=== PATIENT | male | born 1950 | race Caucasian/White ===

== ENCOUNTER 2019-09-20 08:57 | Day surgery (SDC) | payer MEDICARE, BC ==
[~2019-09-20] VITALS: Ht 177.8 cm; Wt 125.5 kg
[2019-09-20] VITALS (10 sets, daily range): BP systolic 99–139; BP diastolic 64–90; PULSE 61–118; TEMP 97.8–98.3
[2019-09-20] MEDS ORDERED: CYMBALTA 60MG60 MG PO (09:28)
[2019-09-20] MEDS ORDERED: TOPROL XL 25MG25 MG PO (09:28)
[2019-09-20] MEDS ORDERED: ZESTORETIC 12.51 TA1 PO (09:28)
[2019-09-20] MEDS ORDERED: PRILOSEC 20MG20 MG PO (09:28)
[2019-09-20] MEDS ORDERED: XARELTO20 MG PO (09:29)
[2019-09-20] MEDS ORDERED: FLOMAX 0.40.4 MG/CAP PO (09:29)
[2019-09-20] MEDS ORDERED: TYLENOL 325MG325 MG PO (09:30)
[2019-09-20] MEDS ORDERED: PRESERVISION1 SGL PO (09:30)
[2019-09-20] MEDS ORDERED: CALCIUM 600MG+D1 TAB PO (09:30)
[2019-09-20 12:28] LABS: HEMATOCRIT 38.4 % (42.0-52.0); HEMOGLOBIN 12.4 g/dl (13.5-18.0)
--- NOTE | 2019-09-20 14:35 | NUR ---
PATIENT ADMITED INTO ROOM 324 POST OP LEFT ORIF OF HUMERUS. LUE DRESSING IS CD&I WITH AQUACEL AND SLING. PATIENT MOVING LUE FINGERS. NO C/O PAIN. RIGHT WRIST IV TO INT. RIGHT HAND IV INFUSING. NO C/O N/V. LIQUIDS AT BEDSIDE. HEAD TO TOE ASSESSMENT COMPLETE. CALL LIGHT IN REACH.
--- NOTE | 2019-09-20 15:15 | NUR ---
REPORTED OFF TO BA CURRY.
--- NOTE | 2019-09-20 19:03 | NUR ---
Patient has done well this afternoon. Left arm numb since surgery, arm remains in sling. Post op vss. Tolerating diet well. Denies further needs at this time. Reported off to scene shifter.
--- NOTE | 2019-09-20 20:15 | NUR ---
PATIENT UP IN CHAIR AT BEDSIDE. IS ALERT AND ORIENTED X4. HAS SL X2 TO RIGHT HAND. LEFT ARM IN SLING, AQUACELL DRSG INTACT TO LEFT UPPER ARM. DENIES PAIN, ABLE TO MOVE FINGERS TO LEFT HAND WITHOUT PROBLEM. IV ANTIBIOTIC INFUSING AT THIS TIME TO RIGHT HAND IV SITE WITHOUT REDNESS OR SWELLING.
--- NOTE | 2019-09-20 20:35 | NUR ---
DC'D SECOND IV SITE TO RIGHT HAND PER PT REQUEST.
--- NOTE | 2019-09-21 00:30 | NUR ---
PT IN BED, RESPIRATIONS EVEN AND UNLABORED. HAS ICE PACK TO LEFT ARM.
[2019-09-21 03:45] VITALS: BP 121/63; PULSE 86; TEMP 97.8
--- NOTE | 2019-09-21 05:30 | NUR ---
PT UP TO BATHROOM, VOIDS AND BACK TO BED. DENIES PAIN, STILL HAS MILD NUMBNESS TO LEFT ARM. ICE PACK REPLACED AT THIS TIME.
[2019-09-21] MEDS ORDERED: NORCO 325 MG-7.1 TAB PO (06:32)
[2019-09-21] MEDS ORDERED: ROXICODONE 55 MG/TAB PO (06:33)
[2019-09-21 07:42] VITALS: BP 145/78; PULSE 103; TEMP 98
[2019-09-21 07:47] LABS: HEMOGLOBIN 11.8 g/dl (13.5-18.0)
--- NOTE | 2019-09-21 07:55 | NUR ---
Sitting up in bed with eyes open. Alert and oriented x3. Denies pain at this time. Able to move left arm and hand, explains that it is still numb that he is not having pain. Aquacell dressing to left upper arm CDI. Erythema and mild edema noted to left upper arm, per the patient it was that way before the procedure. Denies needs at this time.
--- NOTE | 2019-09-21 09:41 | NUR ---
SW met with the patient to discuss discharge plan. The patient lives alone in [place]. He states that his , Paloma ([id number]#[phone]), is retired and lives in [place]. He reports independence with ADLs and has a cane. The patient's PCP is Dr. Ko James and he receives his medications at [facility] in [place]. He reports no difficulties obtaining his meds. The patient does not have advanced directives in EMR, but he states that he does have them completed and that his (Paloma) is his DPOA-HC. The patient plans to return home upon discharge. No additional needs at this time.
--- NOTE | 2019-09-21 10:34 | NUR ---
Discharge instructions reviewed with the patient. Questions answered. Patient verbalizes understanding to all and signs paperwork. Provided discharge packet to the patient. Patient plans to stay until afternoon antibiotic and his brother will be coming to pick him up. Patient denies needs at this time.
--- NOTE | 2019-09-21 13:33 | NUR ---
This student nurse wheeled patient to exit with discharge orders.
== END 2019-09-21 13:45 | disposition home or self-care (01) ==
LOC: SDCO 08:57 → SURG 13:36 → SDCO 09-21 13:43 → SURG 09-21 13:43 → SDCO 09-21 13:45 → SURG 09-21 13:45
PROVIDERS: Orthopaedic Surgery
DX: S42.302A Unspecified fracture of shaft of humerus, left arm, initial encounter for closed fracture (principal); W19.XXXA Unspecified fall, initial encounter; I48.91 Unspecified atrial fibrillation; E86.1 Hypovolemia; Z79.899 Other long term (current) drug therapy; G47.33 Obstructive sleep apnea (adult) (pediatric); I10 Essential (primary) hypertension; E66.01 Morbid (severe) obesity due to excess calories; Z68.45 Body mass index [BMI] 70 or greater, adult; M17.11 Unilateral primary osteoarthritis, right knee; K21.9 Gastro-esophageal reflux disease without esophagitis
CPT/HCPCS: A9284; C1713; C1776; J0330; J0690; J2250; J2370; J2405; J2704; J2795; J3010; J7042; J7120

== ENCOUNTER 2019-10-01 07:32 | Day surgery (SDC) | payer MEDICARE, BC ==
[~2019-10-01] VITALS: Ht 177.8 cm; Wt 124.5 kg
[2019-10-01] VITALS (10 sets, daily range): BP systolic 127–153; BP diastolic 71–90; PULSE 95–116; TEMP 97.3–98
[~2019-10-01 07:32] MED LIST: CALCIUM 600MG+D1 TAB PO; CYMBALTA 20MG20 MG PO; FLOMAX 0.40.4 MG/CAP PO; LOPRESSOR 225 MG/TAB PO; NORCO 325 MG-7.1 TAB PO; PRESERVISION1 SGL PO; PRILOSEC 20MG20 MG PO; ROXICODONE 55 MG/TAB PO; TYLENOL 325MG325 MG PO; XARELTO20 MG PO; ZESTORETIC 12.51 TA1 PO
--- NOTE | 2019-10-01 13:00 | NUR ---
Patient up from OR. Alert and oriented x 3. Assessment complete. Post op VSS, patient has history of Afib, HR between 90's to 110's. On 2 L of o2 via NC at this time, patient states he does not wear oxygen at home. Post op fluids infusing to right hand per orders. Left upper extremity in sling with luci wrap in place. Patient states he can feel his hand and fingers but is otherwise numb. Bruising noted to right orbital area. Will continue to monitor.
--- NOTE | 2019-10-01 14:29 | NUR ---
Veterinary Surgery Technician met with patient to discuss discharge planning. Patient lives alone in [place] although reports he is to his , Paloma ([id number]#[phone]) who lives in [place]. Patient sees Dr. James for primary care and obtains medications from [facility] in [place] with no difficulties. Patient uses CPAP and no other DME. Patient reports independence with ADLS and plans on returning home upon discharge. Patient states his brother, Quintin will provide him with transportation home. SW to continue to follow as needed.
--- NOTE | 2019-10-01 16:50 | NUR ---
Contacted [facility]ONT[facility], patient states he forgot to tell Dr. Xie that he is allergic to the cotton softroll that is in place. Will cause itching, redness, swelling and last time he had it on caused infection. Patient states he cannot currently feel LUE and is afraid that it will cause allergic reaction. Per ELADIA, take down dressing and place aquacell on incision. Patient is to keep arm in sling, spouse to bring brace.
--- NOTE | 2019-10-01 19:25 | NUR ---
Patient has done well throughout the day. Minimal needs. States his LUE is still numb this afternoon. Tolerating diet without difficulties. Sitting up in recliner this afternoon. Hemovac with bloody drainage present. Denies further needs at this time. Reported off to plant operator/shift supervisor.
--- NOTE | 2019-10-01 19:30 | NUR ---
Report received. 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 Assessment complete. VS stable. A&Ox3. Sitting up in chair. Aquacell dressing to left shoulder-CDI. Reminded to keep left extremity in sling-states he has been noticing it slip out because he has no feeling in it due to the block. Encouraged to support on pillows. Fresh ice pack applied. Denies nausea/shortness of breath/pain. Plan of care discussed for this shift to include pain conrol/HS meds/Sling/Ice. Verbalizes understanding. Encouraged to call for assistance to bed. Call light in reach. Will monitor.
[2019-10-02 01:21] VITALS: BP 138/73; PULSE 94; TEMP 97.5
[2019-10-02 04:12] VITALS: BP 104/62; PULSE 77; TEMP 98
--- NOTE | 2019-10-02 04:30 | NUR ---
Remained pain free this shift stating "wish this block lasted 12 days." Has had issues keeping left upper extremity in sling. Re-adjusted several times but loosens/removed throughout this shift. Aquacell dressing x2 remains CDI. Hemovac with 5mls bloody drainage. Voiding without difficulty/tolerating PO. Denies shortness of breath. Denies needs. Call light in reach. Will monitor.
[2019-10-02] MEDS ORDERED: NORCO 325 MG-7.1 TAB PO (07:24)
[2019-10-02] MEDS ORDERED: BACTRIM DS 8001 TAB PO (07:26)
--- NOTE | 2019-10-02 08:00 | NUR ---
Patient in bed resting. Alert and oriented x3. Assessment complete. Patient states LUE numb to touch. Aquacel in place, CDI. Hemovac pulled by ortho this AM. Educated patient on keeping LUE in sling at all times. Hand secondary connector armature equal bilaterally. Denies pain or further needs at this time.
--- NOTE | 2019-10-02 08:02 | NUR ---
Patient sitting in bed, assessment complete, pain scale 0-10 patient states no pain, incision upper left arm covered with aquacell, clean dry and intact, patient states numbness left upper arm, edema on left upper arm plus 1 rapidly resolves, call light with in reach, bed in lower position.
[2019-10-02 08:05] VITALS: BP 136/80; PULSE 94; TEMP 98
--- NOTE | 2019-10-02 10:15 | NUR ---
Removal of peripheral line from right wrist, no redness, no filtration, no phlebitis, tip intact
--- NOTE | 2019-10-02 10:30 | NUR ---
Discharge education provided to patient. Educated on signs and symptoms of infection. Educated patient on using sling at all times. Patient is to go to [facility] after discharge for brace fitting. Educated on all medications. All questions answered. Denies further needs at this time. Patient out by wheelchair with surgical staff. INT discontinued by student.
--- NOTE | 2019-10-02 11:04 | NUR ---
Initial visit; Patient thanked [employer] for offering spirital care, especially offering God's blessings.
== END 2019-10-02 10:30 | disposition home or self-care (01) ==
LOC: SDCO 07:32 → JCC 12:57 → SDCO 10-02 10:30
DX: T84.111A Breakdown (mechanical) of internal fixation device of left humerus, initial encounter (principal); I48.91 Unspecified atrial fibrillation; Z86.718 Personal history of other venous thrombosis and embolism; Z79.01 Long term (current) use of anticoagulants; G47.33 Obstructive sleep apnea (adult) (pediatric); I10 Essential (primary) hypertension; Z79.899 Other long term (current) drug therapy
CPT/HCPCS: OP; A4314; C1713; J1100; J2250; J2405; J2704; J3010; J7120